=== PATIENT | female | born 1970 | race Caucasian/White ===

== ENCOUNTER 2017-12-21 09:57 | Outpatient (CLI) | payer OTHER | END 2017-12-21 09:58 | disposition home or self-care (01) | LOC: BICMAMMO 09:57 | PROVIDERS: ATTEND Internal Medicine Medical Oncology | DX: C50.911 Malignant neoplasm of unspecified site of right female breast (principal) | CPT/HCPCS: G0279 ==

== ENCOUNTER 2019-01-16 17:06 | Emergency (ER) | payer SELFPAY ==
[2019-01-16] MEDS ORDERED: methylPREDNISolone Sod Succ/PF 125 MG/2 ML VIAL ONE (18:18)
[2019-01-16 18:23] LABS: #Eosinphils 0.1 thou/uL (0.0-0.7); #Lymphocytes 1.7 thou/uL (1.20-3.40); #Monocytes 0.7 thou/uL (0.11-0.59); #Neutrophils 5.2 thou/uL (1.40-6.50); %Basophils 0.6 % (0.0-1.0); %Eosinophils 0.8 % (0.0-10.0); %Neutrophils 67.5 % (42.0-75.0); Hemoglobin 12.6 g/dL (12.0-16.0); Mean Corpuscular HGB CONC 30.8 g/dL (32.0-36.0); Mean Corpuscular Hemoglobin 25.2 pg (27.0-31.0); Mean Corpuscular Volume 81.9 fL (78.0-98.0); Mean Platelet Volume 7.5 fL (7.4-10.4); Platelet Count 301 thou/uL (130-400); RBC Distribution Width 13.1 % (11.5-14.5); Red Blood Cell (RBC) Count 4.99 mill/uL (4.20-5.40); White Blood Cell (WBC) Count 7.7 thou/uL (4.8-10.8)
[2019-01-16 18:45] LABS: ALT (SGPT) 24 U/L (8-55); AST (SGOT) 20 U/L (5-34); Albumin 3.6 g/dL (3.5-5.0); Alkaline Phosphatase 94 U/L (40-150); Anion Gap 11 mmol/L (10-20); BUN (Urea Nitrogen) 15 mg/dL (7.0-18.7); Bilirubin, Total 0.2 mg/dL (0.2-1.2); Calc. Creatinine Clearance 0 mL/min (70-130); Calcium 9.2 mg/dL (7.8-10.44); Carbon Dioxide 28 mmol/L (22-29); Chloride 102 mmol/L (98-107); Estimated GFR-MDRD Greater than 90; Globulin 3.7 g/dL (2.4-3.5); Glucose 144 mg/dL (70-105); Potassium 3.8 mmol/L (3.5-5.1); Protein, Total 7.3 g/dL (6.0-8.3); Sodium 137 mmol/L (136-145)
--- NOTE | 2019-01-16 21:10 | RAD ---
PA AND LATERAL CHEST: History: Dyspnea. Comparison: 12-11-16 FINDINGS: Heart size is within normal limits. Mediastinal structures appear unremarkable. Right sided Mediport catheter is again noted to be present. There is a right upper lobe mass that may have been present on the prior examination. There is some increased density in this region but is certainly more conspicu ous than on the prior exam. Changes could just be related to some bony overlap. There has been no int erval CT examination of this area. This measures approximately 2 cm. On the PA chest film there is increased parenchymal density in the region of the lingula although min imal changes are seen on the lateral view. This suggests some possible lingular infiltrate. IMPRESSION: 1. Chronic appearing lung changes. Obscuration to the left heart border as compared to the prior exam suggesting possibly some early lingular infiltrate. 2. Right upper lobe lung mass. It is difficult to say if this was definitively present on the 12-11-[address] follow up on a nonemergent basis would be helpful for assessment of this case. POS: SARAH
--- NOTE | 2019-01-21 17:02 | EKG ---
Test Reason : Blood Pressure : / mmHG Vent. Rate : 096 BPM Atrial Rate : 096 BPM P-R Int : 140 ms QRS Dur : 072 ms QT Int : 344 ms P-R-T Axes : 072 063 054 degrees QTc Int : 434 ms Normal sinus rhythm Biatrial enlargement Abnormal ECG Confirmed by KIM FRANCO ([id number]), mapping editor JUAN LEE ([id number] on 01/21/2019 5:01:45 PM Referred By: Confirmed By:KIM FRANCO
== END 2019-01-16 20:19 | disposition home or self-care (01) ==
LOC: ERS 17:06
DX: J44.1 Chronic obstructive pulmonary disease with (acute) exacerbation (principal); E78.5 Hyperlipidemia, unspecified; F32.9 Major depressive disorder, single episode, unspecified; F17.210 Nicotine dependence, cigarettes, uncomplicated
CPT/HCPCS: 71046; 80053; 83880; 84484; 85025; 93005; 94640; 96374; J2930; J7620

== ENCOUNTER 2019-02-03 10:22 | Outpatient (CLI) | payer SELFPAY ==
[2019-02-03] MEDS ORDERED: Sodium Chloride 0.9% 20 ML ONE (10:44)
[2019-02-03] MEDS ORDERED: Sodium Chloride 0.9% 10 ML ONE (10:55)
--- NOTE | 2019-02-03 14:06 | NM ---
WHOLE BODY BONE SCAN: Date: 02/03/19 HISTORY: Right breast cancer, status post right mastectomy and lymph node removal. Patient is experiencing sev ere mid back pain, right shoulder and neck pain, and left knee pain. Malignant neoplasm of upper oute r quadrant of right female breast. FINDINGS: A right-sided Port-A-Cath is present with presence of tracer material. This was used as the injection site. A focus of mildly increased uptake is seen in the right anterior costochondral junction (likely 5th o r 6th), which is most likely a benign finding. Increased uptake in the shoulders, elbows, wrists, subramanian ds, hip, knees, ankles, and feet are consistent with degenerative change. No other abnormalities of t racer localization seen. Tracer excretion through the kidneys is within normal limits. IMPRESSION: No scintigraphic evidence of osseous metastatic disease. POS: OFF
== END 2019-02-03 10:23 | disposition home or self-care (01) ==
LOC: NM 10:22
PROVIDERS: ATTEND Internal Medicine Medical Oncology
DX: M54.2 Cervicalgia (principal); M79.621 Pain in right upper arm; C50.411 Malignant neoplasm of upper-outer quadrant of right female breast
CPT/HCPCS: 78306; A9503; J1642

== ENCOUNTER 2019-02-08 12:06 | Outpatient (CLI) | payer SELFPAY ==
--- NOTE | 2019-02-08 13:01 | ULT ---
RIGHT AXILLARY ULTRASOUND: Date: 02/08/19 HISTORY: History of breast cancer, status post mastectomy. Right axillary pain. TECHNIQUE: Multiplanar Matamoros scale and color Doppler images were obtained in a targeted ultrasound of the right a xilla. FINDINGS: No fluid collection or mass is seen. No enlarged lymph nodes are present. IMPRESSION: Unremarkable exam. POS: SARAH
== END 2019-02-08 12:07 | disposition home or self-care (01) ==
LOC: BICULT 12:06
PROVIDERS: ATTEND Internal Medicine Medical Oncology
DX: C50.919 Malignant neoplasm of unspecified site of unspecified female breast (principal); M54.2 Cervicalgia; R07.89 Other chest pain; R22.9 Localized swelling, mass and lump, unspecified
CPT/HCPCS: 76999

== ENCOUNTER 2025-06-21 08:45 | Emergency (ER) | payer OTHER ==
[2025-06-21 10:08] LABS: #Basophils 0.06 10x3/uL (0.0-0.2); #Eosinophils 0.11 10x3/uL (0.0-0.7); #Monocytes 0.51 10x3/uL (0.11-0.59); #Neutrophils 3.58 10x3/uL (1.40-6.50); %Basophils 1.1 % (0.0-1.0); %Eosinophils 2.0 % (0.0-10.0); %Lymphocytes 21.1 % (21.0-51.0); %Monocytes 9.4 % (0.0-10.0); %Neutrophils 66.2 % (42.0-75.0); Hematocrit 41.0 % (36.0-47.0); Hemoglobin 13.0 g/dL (12.0-16.0); Mean Corpuscular Hemoglobin 27.2 pg (27.0-31.0); Mean Corpuscular Volume 85.8 fL (78.0-98.0); Platelet Count 269 10x3/uL (130-400); Red Blood Cell (RBC) Count 4.78 mill/uL (4.20-5.40); White Blood Cell (WBC) Count 5.41 10x3/uL (4.8-10.8)
[2025-06-21 10:31] LABS: ALT (SGPT) 74 U/L (Less than 34); AST (SGOT) 43 U/L (11-34); Albumin 3.7 g/dL (3.1-4.5); Alkaline Phosphatase 167 U/L (40-110); Anion Gap 14 mmol/L (10-20); BUN (Urea Nitrogen) 17 mg/dL (9.8-20.1); Bilirubin, Total 0.2 mg/dL (0.3-1.2); CK (CPK) 61 U/L (29-168); Calc. Creatinine Clearance 0 mL/min (70-130); Calcium 8.8 mg/dL (7.8-10.44); Carbon Dioxide 19 mmol/L (22-29); Chloride 109 mmol/L (98-107); Globulin 3.8 g/dL (2.4-3.5); Glucose 131 mg/dL (70-105); Potassium 3.7 mmol/L (3.5-5.1); Sodium 138 mmol/L (136-145)
== END 2025-06-21 12:05 | disposition home or self-care (01) ==
LOC: ERS 08:45
DX: M79.621 Pain in right upper arm (principal); K75.9 Inflammatory liver disease, unspecified; J44.9 Chronic obstructive pulmonary disease, unspecified; E78.00 Pure hypercholesterolemia, unspecified; F32.A Depression, unspecified; C50.919 Malignant neoplasm of unspecified site of unspecified female breast; F17.290 Nicotine dependence, other tobacco product, uncomplicated
CPT/HCPCS: 36415; 80053; 82550; 85025; 93005